=== PATIENT | female | born 2000 | race Caucasian/White ===

== ENCOUNTER 2024-05-27 13:05 | Emergency (ER) | payer OTHER, SELFPAY ==
[2024-05-27 13:08] VITALS: BP 127/91; PULSE 85; RESP 18; O2SAT 100; BMI 22.2
--- NOTE | 2024-05-27 13:13 | ED.GENADULT ---
HPI - General Adult General Chief complaint: General Medical Stated complaint: THROAT ISSUE Time Seen by Provider: 05/27/24 13:13 Source: patient Limitations: no limitations History of Present Illness HPI narrative: 24-year-old female, postop day 3 status post all 4 wisdom teeth extraction presents for evaluation of ?bruising? to the back of the left side of her throat. Patient states she had initially noted some erythema but this morning when she looked, it looked much more bruised and was concerned and therefore presents to the emergency department for further evaluation. Patient states she has been drinking fluids without difficulty. She is tolerating soft foods. She denies having any hard foods or difficulty swallowing. She has been eating and drinking without difficulty otherwise. She is tolerating her secretions and has node difficulty with speaking or swallowing. No trauma and she denies any pain. She is not on anticoagulants. Related Data Allergies Allergy/AdvReac Type Severity Reaction Status Date / Time No Known Allergies Allergy Verified 05/27/24 13:11 Review of Systems ENT: Reports as per HPI, Denies dry mouth, Denies hoarseness, Denies lip swelling, Denies mouth pain and Denies nasal congestion Allergic/Immunologic: Allergic/Immunologic: Denies lip swelling PMFSH Social History Social History Advance Directives: No Advance Directives Information Provided: No Physical Exam ED Vital Signs: Vital Signs - 24 hr 05/27/24 13:08 05/27/24 13:40 Temperature 97.3 F Pulse Rate 85 85 Respiratory Rate 18 18 Blood Pressure 127/91 H 127/91 H Pulse Oximetry 100 100 Oxygen Delivery Method Room Air Room Air BMI result Body Mass Index 22.2 Const Other: Speaks full clear sentences. HENMT Other: Oropharynx is moist. There is no tongue elevation or edema. Patient tolerate secretions. No muffled voice. The left tonsillar pillar is ecchymotic. There was no active bleeding. There is a pinpoint area on the left tonsillar pillar that looks to be slightly edematous but there is no active discharge or fluctuance. There was no tenderness to the area of the left tonsillar region. Surgical sites are intact without any erythema, discharge or bleeding. Full range of motion of the mandible. No mandibular floor tenderness or fullness. Remaining teeth are in good repair. Neck Other: Slight, nontender right, anterior cervical lymphadenopathy otherwise no lymphadenopathy or edema noted. Neck: Yes full ROM Psych Appearance: grossly normal Medical Decision Making Medical Decision Making MDM Narrative: 24-year-old female status post wisdom tooth extraction 3 days ago. Patient noting ecchymosis to the left tonsillar pillar. There is no acute evidence of infection at this time. There is no evidence of airway involvement. She is tolerating secretions in his denies having any pain. At this time, in discussion with the patient, I feel it is reasonable to continue to monitor symptoms. She is currently using warm water and salt gargles. She is not having any pain. Patient expresses understanding of all discharge instructions including monitoring for any changes such as edema, erythema, increased ecchymosis, development of pain, fever or any other concerns to return immediately to the emergency department. No further questions at this time. 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 Watch for swelling, development of pain, fevers, difficulty swallowing, or any other concern return immediately to the emergency department. As discussed, continue warm water and salt gargles. Follow-up with your primary care provider. Call this week to schedule a follow-up appointment. Return to the emergency department if you have any worsening of symptoms, or any concerns. Get well soon! Interventions: ED Discharge Assessment Last Done: 05/27/24 13:40 Discharge Date/Time: 05/27/24 13:41 Print Language: Latvian
[2024-05-27 13:40] VITALS: BP 127/91; PULSE 85; RESP 18; TEMP 36.3; O2SAT 100
== END 2024-05-27 13:41 | disposition home or self-care (01) ==
PROVIDERS: Emergency Provider Internal Medicine; PCP Internal Medicine
DX: R07.0 Pain in throat (principal)
CPT/HCPCS: 99282

== ENCOUNTER 2025-02-18 03:22 | Emergency (ER) | payer OTHER, SELFPAY ==
[2025-02-18 03:25] VITALS: BP 112/61; PULSE 82; RESP 16; TEMP 37.3; O2SAT 95; BMI 22.5
[2025-02-18 03:53] VITALS: BP 108/63; PULSE 74; RESP 18; TEMP 37.6; O2SAT 95
--- NOTE | 2025-02-18 03:54 | ED_ITS ---
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 She denies associated sore t hroat, ear pain, vomiting, diarrhea, dysuria, or hematuria. Neck pain localizes to the lateral aspects; no midline pain or history of trauma. She self- administered 600 mg ibuprofen prior to arrival with some relief of fever. Denies chronic medical conditions. Related Data Allergies Allergy/AdvReac Type Severity Reaction Status Date / Time No Known Allergies Allergy Verified 02/18/25 03:27 Review of Systems Review of Systems: Yes all other systems are reviewed and are negative PMFSH Social History Social History Alcohol intake: never Smoked in Last 30 Days: No Use of substances other than those prescribed or required for medical reasons: No Advance Directives: No Advance Directives Information Provided: Yes Do you have a plan to hurt others: No Plan Physical Exam ED Vital Signs: Vital Signs - 24 hr 02/18/25 03:25 02/18/25 03:53 Temperature 99.2 F 99.6 F Pulse Rate 82 74 Respiratory Rate 16 18 Blood Pressure 112/61 108/63 Pulse Oximetry 95 95 Oxygen Delivery Method Room Air Room Air BMI result Body Mass Index 22.5 CONSTITUTIONAL: The patient appears non-toxic, well nourished and in no acute distress. Vital signs as documented. HEAD: Atraumatic, normocephalic. EYES: EOMs grossly intact, pupils equal, conjunctiva clear, no exudate. ENT: Nares patent, no discharge. Airway patent, no audible stridor, visible mucosa is pink and moist without noted lesions. Posterior pharynx shows midline nonedematous uvula, no peritonsillar or tonsillar swelling, no tonsillar exudate. NECK: Trachea is midline, no obvious masses or gross abnormalities. Full range of motion, able to touch chin to chest without evidence of discomfort, no evidence of meningismus. CHEST: Symmetric movement, normal appearance. LUNGS: LS present and CTAB, no w/r/r. Non-labored work of breathing. CARDIAC: Regular Rhythm, S1/S2 appreciated, no murmurs, rubs or gallops. ABDOMEN: Abdomen soft and non-tender x4 quadrants, no palpable masses or organomegaly. : Deferred. EXTREMITIES: Normal tone, moves all extremities spontaneously without reported pain. No obvious acute injury or deformity noted. NEURO: Alert and oriented x3, CN II-XII appear grossly intact. Cerebellar Functioning grossly intact. No obvious sensory or motor deficits. Speech clear and appropriate. PSYCH: normal affect, appropriate eye contact, fluid speech, with appropriate response to questioning. No reported suicidality or homicidality. SKIN: Warm, dry, color appropriate, normal turgor. No rashes noted. 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 She denies associated sore throat, ear pain, vomiting, diarrhea, dysuria, or hematuria. Neck pain localizes to the lateral aspects; no midline pain or history of trauma. She self-administered 600 mg ibuprofen prior to arrival with some relief of fever. Denies chronic medical conditions. On exam patient is well-appearing, nontoxic, there is full range of motion of the neck, able to touch chin to chest without pain or limited range of motion. Her lungs are clear to auscultation bilaterally, abdomen is nontender, remainder of exam is benign. The patient is likely suffering from a viral URI, we will obtain viral swab. Patient will be reassessed following lab results. If patient has persistent symptoms we will let administered Tylenol in addition to the ibuprofen. 4:39 AM 02/18/2025 (Nieves NIELSEN): The patient is positive for influenza A. Patient remains hemodynamically stable, no respiratory distress, no hypoxia. Patient will be treated with Tylenol and discharged with supportive care. Lab Data Labs: Lab Results 02/18/25 Range/Units 03:58 Influenza Type A (PCR) POSITIVE A (Negative) Influenza Type B (PCR) NEGATIVE (Negative) RSV RNA Qual (PCR) NEGATIVE (Negative) SARS-CoV-2 RNA (RT-PCR) NEGATIVE (Negative) Discharge Plan Discharge Clinical Impression: Influenza A Patient Disposition: Home, Self-Care Instructions: Influenza (ED), Viral Syndrome (ED) Additional Instructions: Thank you for choosing [facility]'s Emergency Department for your care today. Thankfully your exam and vital signs today are reassuring. At this time there is no indication for admission to the hospital or continued ED observation, and it is safe to discharge you home. Your laboratory evaluation shows that you are suffering from influenza A. You were negative for COVID and RSV. You should take alternating (staggered) doses of ibuprofen 600mg and Tylenol 1000mg every 4 hours as needed for any additional pain. Please stay well hydrated and get plenty of rest. Please follow up with your primary care physician for re-evaluation, additional management of your symptoms, and continued preventative care. If you do not have a primary care physician, please call the [facility] at [phone] to establish a new primary care physician. While waiting to establish your new primary care physician, you can call our Walk-in [facility] at [phone] for non-emergency needs. Please return to the emergency department if you develop a severe or sudden change in your symptoms, a fever over 100.4 that does not improve with Tylenol or Ibuprofen, recurrent vomiting, or any other new or worsening symptoms or concerns. Referrals: Jalen Kuhn MD [Primary Care Provider, Internal Medicine] Stand Alone Forms: Work/School Release Print Language: [place] Citizen
--- OUTSIDE RECORDS SUMMARY | 2025-02-18 04:01 | XMS_ITS ---
Author Name [facility] Organization Unknown Care Team Organization Name Specialty Phone Email Start Date End Da bi [facility] Termed, PROVIDER Primary Care 01/06/202209/29
--- OUTSIDE RECORDS SUMMARY | 2025-02-18 04:01 | XMS_ITS | Clinical Summary ---
Author Organization [facility] [address] [place] [address] [address] [place] [address] Phone Care Team Providers Care Proof Reader Name Role Phone Jalen Kuhn MD Primary Care Provider Allergies Active Allergy Reactions Criticality Noted Date Comments Other 05/14/2017 Seasonal Medications inhalational spacing device (Aerochamber MV) inhaler 1 Container by Does not apply route daily. 1 Active albuterol HFA (PROAIR HFA ; PROVENTIL HFA ; VENTOLIN HFA) 90 mcg/actuation inhaler Inhale 2 puffs by mouth every 4 (four) hours if needed for wheezing. 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 Near syncope 05/07/2020 Elevated bilirubin 06/23/2019 Overview (02/28/2024): r/o Gilbert's Syndrome will repeat LFTs in July during PE exam 2-21 repeat labs Last Assessment & Plan: r/o Gilbert's Syndrome will repeat LFTs in July during PE exam 2-21 repeat labs Anxiety 05/12/2018 Overview (02/28/2024): 3-19 ref to [facility] 4-19 appointment next week with therapist 2-21 improved after therapy Last Assessment & Plan: 3-19 ref to [facility] 4-19 appointment next week with therapist 2-21 improved after therapy Asthma, exercise induced 05/12/2017 Overview (02/28/2024): 4-19 ,2-21 PRN proair inhaler Last Assessment & Plan: 2-21 PRN proair inhaler Immunizations Immunization Administration Dates Next Due DTaP (Infanrix) 6wks to less than 7yo ,10/10/2001,2000,11/11,2000 [id number] (Pentacel) 2mo to less than 5yo 07/18/2001,2000,2000,09/29 H1N1 Inj Preservative Free 12/26/2008 HPV, Quadrivalent 06/13/2014,02/01/2014,02/01/20 13 Hepatitis B Pediatric (Enger ix B; Recombivax HB) to less than 20 yo 2000,2000,2000 IPV Inactivated polio (Ipol) 6wks and older 06/23/2004,04/19/2001,2000,09/29 Influenza Quadravalent, MDCK , 0.5ml, preservative free (Flucelvax) 6mo and older 01/18/2022,05/07/2020 Influenza trivalent, 0.5mL, preservative free (Fluarix; FluLaval; Fluzone) ages 6mo and older (Afluria) 3 years and older 04/23/2017,04/23/2016,03/12/2015 Influenza trivalent, with pr eservative (Fluzone; Afluria) 6mo and older 02/01/2014,11/12/2009,11/01/2008 Influenza, live, intranasal, trivalent (FluMist) 2yo to less than 50yo 01/05/2012 MMR, measles mumps and rubel la Live (Priorix; M-M-R II) 12mo and older 06/23/2004,04/19/2001 Meningococcal MCV4P 04/23/2016,01/05/2012 Pneumococcal Conjugate Vacci ne, 7 Valent 2000,2000,2000 Tdap Tetanus diptheria acell ular pertussis (Boostrix; Adacel) 7yo and older 01/05/2012 Varicella live (Varivax) 12m o and older 11/12/2009,04/19/2001 Surgical History Surgery Date Site/Laterality Comments OTHER SURGICAL HISTORY PROCEDURE: DENIES PREVIOUS SURGERY Medical History Medical History Date Comments Synovial cyst of popliteal space DX:Synovial cyst of popliteal space SOB (shortness of breath) on exertion 04/23/2017 DX:SOB (shortness of breath) on exertion Anxiety 05/12/2018 DX:Anxiety; COMM ENT: 05-17 ref to [facility] Mononucleosis 06/08/2018 DX:Mononucleosis ; COMMENT: 05-17 Asthma, exercise induced 05/12/2017 DX:Asth ma, exercise induced Elevated bilirubin 06/23/2019 DX:Elevated b ilirubin; COMMENT: r/o Gilbert's Syndrome will repeat LFTs in July during PE exam Finger fracture, right 01/28/2019 DX:Finger fracture, right; COMMENT: 12/30/17 - saw [facility]. Placed in splint. Marijuana use DX:Marijuana use ; COMMENT: vaping as well, never cigarettes Family History Medical History Relation Name Comments Allergies Brother 1 1/2 Asthma Brother 2 1/2 Asthma Brother 3 1/2 Alcohol/Drug Father drug abuse Lung cancer Maternal Grandfather Alzheimer's disease Maternal Grandmother 60s Breast cancer Maternal Grandmother Heart attack Maternal Grandmother s node trouble /pacemaker 61y/o Other: Other Mother BRCA negative Lung cancer Paternal Grandfather Other: Other Paternal Grandmother lupus d eceased 60s Blindness Neg Hx Cataracts Neg Hx Glaucoma Neg Hx Macular degeneration Neg Hx Strabismus Neg Hx Relation Name Status Comments Brother 1 Brother 2 Brother 3 Brother 4 Alive REX STEFAN- Brother 5 Alive 1/2 Brother 6 Alive 1/2 Father Alive Maternal Grandfather Maternal Grandmother JAYESH Tyrlel CABRERA- 12/06/41 Mother Alive GILDA STEFAN- 11/20/89 Paternal Grandfather Paternal Grandmother Social History Tobacco Use Types Packs/Day Years Used Date Smoking Tobacco: Former Cigarettes Smokeless Tobacco: Never Tobacco Cessation:Counseling Given: Not Answered Alcohol Use Standard Drinks/Week Comments Yes 0 (1 standard drink = 0.6 oz pur e alcohol) Housing Instability Answer Date Recorde d Are you worried that in the next 2 months you may not have stable housing? Patient declined 03/29/2024 Food Access & Nutrition Answer Date Rec orded Do you have access to a vari ety of food including fruits and vegetables? Patient declined 03/29/2024 Health Literacy Answer Date Recorded How often do you need to hav e someone help you when you read instructions, pamphlets, or other written material from your doctor or pharmacy? Patient declined 03/29/2024 Caregiver: How often do you need to have someone help you when you read instructions, pamphlets, or other written material from your doctor or pharmacy? Not on file 025 Financial Risk Answer Date Recorded How hard is it for you to pa y for the very basics like food, housing, medical care, and air conditioning / heating? Patient declined 03/29/2024 Transportation Answer Date Recorded Has the lack of transportati on kept you from meetings, work, or from getting things needed for daily living? Patient declined 03/29/2024 Has the lack of transportati on kept you from medical appointments or from getting medications? Patient declined 03/29/2024 Social Isolation Answer Date Recorded How often do you feel lonely or isolated from those around you? Patient declined 03/29/2024 Food Risk Answer Date Recorded Within the past 12 months we worried whether our food would run out before we got money to buy more. Patient declined 025 Within the past 12 months th e food we bought just didn't last and we didn't have money to get more. Patient declined 03/02 Dependent Care Answer Date Recorded Do you need help finding or paying for care for your loved ones. For example, childhood development teacher or elderly care for an older adult? Patient declined 03/29/2024 Education Answer Date Recorded Do you think completing more education or training, like finishing a GED, going to college, or learning a trade, would be helpful for you? Patient declined 03/29/2024 Employment and Income Answer Date Recor ded During the last four weeks, have you been actively looking for work? Patient declined 03/29/2024 Living Situation Answer Date Recorded What is your living situation? Unrecognized valu e 03/29/2024 Comments No Sex and Gender Information Value Date Recorded Sex Assigned at Not on file Legal Sex Female 1:58 AM EST Gender Identity Not on file Sexual Orientation Not on file Obstetrics History Para Term AB IAB SAB Ectopic Multiple Livin g Live Births 0 0 0 0 0 0 0 0 Last Filed Vital Signs Vital Sign Reading Time Taken Comments Blood Pressure 102/66 11/09/2024 10:37 AM EDT Pulse 84 11/09/2024 10:37 AM EDT Temperature 36.4 C (97.6 F) 11/09/2024 10:37 AM EDT Respiratory Rate 16 03/30/2024 8:10 AM EST Oxygen Saturation 98% 11/09/2024 10:37 AM EDT Inhaled Oxygen Concentration - - Weight 55.8 kg (123 lb) 11/09/2024 10:37 AM EDT Height 152.4 cm (5') 11/09/2024 10:37 AM EDT Body Mass Index 24.02 11/09/2024 10:37 AM EDT Plan of Treatment Health Maintenance Due Date Last Done Comments Pneumococcal Vaccine: Pediatrics (0 to 5 Years) and At-Risk Patients (6 to 49 Years) (1 of 1 - PPSV23, PCV20, or PCV21) 2006 2000, 2000, 2000 Cervical Cancer Screening: Pap Smear 2021 DTaP,Tdap,and Td Vaccines (7 - Td or Tdap) 01/04/2022 01/05/2012, 06/23/2004, 10/10/2001, Additional history exists Gonorrhea/Chlamydia Screening 10/10/2022 10/10/2021 COVID-19 Vaccine (3 - 2024- season) 2024 08/14/2020, 07/12/2020 Influenza Vaccine (#1) 2024 , 05/07/2020, 04/23/2017, Additional history exists Social Influencers of Health Screening 03/29/2025 03/29/2024 RSV Immunization Adult Patients (1 - 1-dose 75+ series) 2075 Hepatitis B Vaccines Completed 2000, 2000, 2000 HIB Vaccines Completed 07/18/2001, 11/30, 2000, Additional history exists IPV Vaccines Completed 06/23/2004, 06/30, 04/19/2001, Additional history exists MMR Vaccines Completed 06/23/2004, 04/19/2001 Varicella Vaccines Completed 11/12/2009, 04/19/2001 HPV Vaccines Completed 06/13/2014, 1205/2013, 01/31/2013 Meningococcal ACWY Vaccine Completed 04/23/2016, Hepatitis C Screening Completed 01/31/2020 HIV Screening Completed 05/07/2020 Depression Screening Completed 03/29/2024 Hepatitis A Vaccines Aged Out No long er eligible based on patient's age to complete this topic Meningococcal B Vaccine Aged Out No l onger eligible based on patient's age to complete this topic RSV Immunization Patients Under 20 months Aged Out No longer eligible based on patient's age to complete this topic Procedures Procedure Name Priority Date/Time Associated Diagnosis Comments GONORRHEA/CHLAMYDIA SCRREENING Routine 10/10/2021 HIV SCREENING Routine 05/07/2020 HEPATITIS C SCREENING Routine 01/31/2020 from Last 3 Months or Most Recently Relevant to Health Maintenance Results * Gonorrhea/Chlamydia Screening (10/10/2021) Gonorrhea/Chla mydia Screening Abstracted [facility] Provider HEALTH MAINTENANCE Final Result * HIV Screening (05/07/2020) HIV Screening Abstracted [facility] Provider HEALTH MAINTENANCE Final Result * Hepatitis C Screening (01/31/2020) Hepatitis C Screening Abstracted Historical Provider HEALTH MAINTENANCE Final Result from Last 3 Months or Most Recently Relevant to Health Maintenance Insurance [employer] [facility] Care Teams Proof Reader Relationship Specialty Start Date End Date Jalen Kuhn MD [address] [place] [id number] PCP - General 04/21/23
[2025-02-18 04:38] LABS: Resp Syncy Virus RNA Qual PCR NEGATIVE (Negative); SARS COV2 PCR INHOUSE NEGATIVE (Negative)
[2025-02-18 05:04] VITALS: BP 108/63; PULSE 74; RESP 18; TEMP 37.6; O2SAT 95
== END 2025-02-18 05:05 | disposition home or self-care (01) ==
PROVIDERS: Emergency Provider Student in an Organized Health Care Education/Training Program; PCP Internal Medicine
DX: J10.1 Influenza due to other identified influenza virus with other respiratory manifestations (principal); R05.9 Cough, unspecified; Z03.818 Encounter for observation for suspected exposure to other biological agents ruled out
CPT/HCPCS: 87637; 99283; 99284